=== PATIENT | female | born 1955 | race Caucasian/White ===

== ENCOUNTER → 2021-01-04 | Outpatient (CLI) | payer MEDICAID, MEDICARE ==
--- NOTE | 2021-01-04 16:27 | Diagnostic Imaging Report ---
Indication: Fell 3 months ago. Low back pain radiating to both legs 5 views of the lumbosacral spine shows normal height of the vertebral bodies. There are several millimeters of spondylolisthesis at L4-L5. There is minimal disc space narrowing at L4-L5. There is minimal spondylosis. There are degenerated facets from L3 through L5 with no spondylolysis seen. No fracture or other acute abnormality is seen. IMPRESSION: There is mild degenerative disc and facet disease present with no acute abnormality seen. Dictated by: Dictated on workstation # [id number]
--- NOTE | 2021-01-04 17:00 | Diagnostic Imaging Report ---
INDICATION: Left knee pain AP, oblique, and lateral views of the left knee are obtained. No fracture or acute bony abnormality is seen. There is a prominent joint effusion in the suprapatellar recess. IMPRESSION: Prominent left knee joint effusion. No acute fracture or significant joint space narrowing. Dictated by: Dictated on workstation # [id number]
[2021-01-04 17:08] LABS: ALBUMIN 3.9 GM/DL (3.2-4.5); BILIRUBIN,TOTAL 0.4 MG/DL (0.1-1.0); CALCIUM 9.1 MG/DL (8.5-10.1); CREATININE SERUM 0.74 MG/DL (0.60-1.30); POTASSIUM 3.8 MMOL/L (3.6-5.0); TOTAL PROTEIN 7.2 GM/DL (6.4-8.2)
[2021-01-04 17:09] LABS: BASOPHILS # (AUTO) 0.1 10^3/uL (0.0-0.1); BASOPHILS % (AUTO) 1 % (0-10); EOSINOPHILS # (AUTO) 0.1 10^3/uL (0.0-0.3); EOSINOPHILS % (AUTO) 2 % (0-10); HEMATOCRIT 37 % (35-52); HEMOGLOBIN 12.2 g/dL (11.5-16.0); LYMPHOCYTES # (AUTO) 3.1 X 10^3 (1.0-4.0); LYMPHOCYTES % (AUTO) 35 % (12-44); MEAN CORPUSCULAR HEMOGLOBIN 29 pg (25-34); MEAN CORPUSCULAR HGB CONC 33 g/dL (32-36); MEAN CORPUSCULAR VOLUME 87 fL (80-99); MEAN PLATELET VOLUME 9.7 fL (9.0-12.2); MONOCYTES # (AUTO) 0.9 X 10^3 (0.0-1.0); MONOCYTES % (AUTO) 10 % (0-12); NEUTROPHILS # (AUTO) 4.6 X 10^3 (1.8-7.8); NEUTROPHILS % (AUTO) 53 % (42-75); PLATELET COUNT 291 10^3/uL (130-400); WHITE BLOOD COUNT 8.8 10^3/uL (4.3-11.0)
[2021-01-04 17:10] LABS: ERYTHROCYTE SEDIMENTATION RATE 50 MM/HR (0-30)
--- NOTE | 2021-01-04 17:47 | Diagnostic Imaging Report ---
INDICATION: Fall, neck pain. COMPARISON: None. EXAMINATION: Three views of the cervical column. FINDINGS: Normal alignment. There is no subluxation or fracture. Mild degenerative changes are seen throughout the disc spaces and facet joints. No osseous lesion. IMPRESSION: Mild diffuse degenerative changes. Dictated by: Dictated on workstation # [id number]
== END ==
LOC: LAB FS 15:29
PROVIDERS: ATTEND Family Medicine
DX: E11.69 Type 2 diabetes mellitus with other specified complication (principal); E55.9 Vitamin D deficiency, unspecified; M54.5 Low back pain; M54.12 Radiculopathy, cervical region; M25.562 Pain in left knee; R50.9 Fever, unspecified
CPT/HCPCS: 36415; 72040; 72110; 73562; 80053; 82306; 83036; 85025; 85652; 86141; 87040